=== PATIENT | female | born 2000 | race Caucasian/White ===

== ENCOUNTER 2024-07-25 13:04 | Emergency (ER) | payer SELFPAY ==
[2024-07-25 13:09] VITALS: BP 138/88; PULSE 99; RESP 20; TEMP 36.5; O2SAT 100; BMI 17.4
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
--- NOTE | 2024-07-25 13:36 | CT_ITS ---
FINAL REPORT TECHNIQUE: Thin section axial images were obtained through the thoracic spine without contrast. Sagittal and coronal images were obtained from the axial data. This study was performed with techniques to keep radiation doses as low as reasonably achievable, (ALARA). Individualized dose reduction techniques using automated exposure control or adjustment of mA and/or kV according to the patient's size were employed. CLINICAL HISTORY: trauma, critical injury suspected FINDINGS: There is no acute fracture of the thoracic spine. There is no malalignment. The disc spaces are well-preserved. No acute paraspinal abnormality is identified. IMPRESSION: No acute osseous abnormality of the thoracic spine. Reviewed, Interpreted and Dictated by Alena Barnard MD Transcribed by Mariely Oliver Authenticated and [facility]
--- NOTE | 2024-07-25 13:36 | CT_ITS ---
FINAL REPORT TECHNIQUE: Thin section axial images were obtained through the cervical spine without contrast. Multiplanar reconstruction images were obtained from the axial data. Exam was performed using dose reduction techniques. CLINICAL HISTORY: trauma, critical injury suspected FINDINGS: There is no acute fracture or acute malalignment of the cervical spine. There is no evidence of unilateral or bilateral facet lock. Vertebral body height is preserved. No acute paraspinal abnormality is identified. IMPRESSION: No acute osseous abnormality of the cervical spine. Reviewed, Interpreted and Dictated by Alena Barnard MD Transcribed by Mariely Oliver Authenticated and [facility]
--- NOTE | 2024-07-25 13:36 | CT_ITS ---
FINAL REPORT TECHNIQUE: Thin section axial images were obtained through the lumbar spine without contrast. Sagittal and coronal reconstruction images were obtained from the axial data. Exam was performed using dose reduction techniques. CLINICAL HISTORY: trauma, critical injury suspected FINDINGS: There is no acute fracture or acute malalignment of the lumbar spine. Vertebral body height is preserved. The disc spaces are well-preserved. There is no significant central stenosis. Paraspinal soft tissues are within normal limits. There is no paraspinal mass or fluid collection. IMPRESSION: No acute abnormality of the lumbar spine. Reviewed, Interpreted and Dictated by Alena Barnard MD Transcribed by Mariely Oliver Authenticated and [facility]
--- NOTE | 2024-07-25 13:36 | CT_ITS ---
FINAL REPORT TECHNIQUE: Thin section axial images were obtained from skull base to vertex without contrast. Coronal reconstruction images were obtained from the axial data. Exam was performed using dose reduction technique. CLINICAL HISTORY: trauma, critical injury suspected FINDINGS: There is no mass effect or midline shift. There is no hydrocephalus. There is no intracranial hemorrhage. The posterior fossa is without acute abnormality. The basilar cisterns are preserved. The soft tissues are without acute abnormality. No acute osseous abnormality is identified. IMPRESSION: No acute intracranial abnormality. Reviewed, Interpreted and Dictated by Alena Barnard MD Transcribed by Mariely Oliver Authenticated and [facility]
--- NOTE | 2024-07-25 13:37 | CT_ITS ---
FINAL REPORT TECHNIQUE: Axial images through the pelvis were performed by computed tomography. Sagittal and coronal reformatted images were obtained and reviewed. This study was performed with techniques to keep radiation doses as low as reasonably achievable, (ALARA). Individualized dose reduction techniques using automated exposure control or adjustment of mA and/or kV according to the patient's size were employed. CLINICAL HISTORY: trauma, critical injury suspected FINDINGS: No acute fracture is identified of the pelvis or either hip. The hip joint spaces are well-preserved. The sacroiliac joints are intact. There is no acute soft tissue abnormality. IMPRESSION: No acute osseous abnormality. Reviewed, Interpreted and Dictated by Alena Barnard MD Transcribed by Mariely Oliver Authenticated and [facility]
[2024-07-25] MEDS: KETOROLAC 30MG/ML VIAL 15 MG IV (13:45)
[2024-07-25] MEDS: METHOCARBAMOL 500MG TABLET 500 MG PO (13:45)
[2024-07-25] MEDS: ACETAMINOPHEN 500MG TAB 1000 MG PO (13:45)
[2024-07-25 13:52] VITALS: BP 113/83; PULSE 82; O2SAT 95
[2024-07-25 14:00] VITALS: BP 106/67; PULSE 73; O2SAT 99
[2024-07-25 14:12] LABS: Albumin Level 4.3 g/dl (3.5-5.0); Chloride 107 mmol/L (98-107); Potassium 4.3 mmoL/L (3.5-5.1); Sodium 139 mmol/L (136-145)
[2024-07-25 14:14] LABS: Alanine Aminotransferase 20 U/L (12-78); Aspartate Amino Transferase 42 U/L (14-36); Blood Urea Nitrogen 10 mg/dl (7-17); Estimated Glomerular Filt Rate 125 ml/min (>60); GFR (African American) 151 ML/MIN (>60)
[2024-07-25 14:15] LABS: Albumin/Globulin Ratio 1.7 (1.1-1.8); Alkaline Phosphatase 36 U/L (38-126); Anion Gap 11.3 mEq/L (5-15); Bilirubin,Total 0.5 mg/dl (0.2-1.3); Calcium 9.2 mg/dl (8.4-10.2); Carbon Dioxide 25 mmol/L (22.0-30.0); Creatine Kinase 1006 U/L (30-135); Globulin 2.5 g/dL (1.3-3.2); Glucose 88 mg/dl (74-100); Total Protein,Serum 6.8 g/dl (6.3-8.2)
[2024-07-25 14:16] LABS: Lactic Acid 0.8 mmol/L (0.7-2.1)
[2024-07-25 14:18] LABS: Basophils # 0.1 K/mm3 (0-0.2); Basophils % 1.2 % (0.1-2.0); Eosinophils # 0.1 K/mm3 (0.0-0.4); Eosinophils % 1.7 % (0.1-12.0); Hematocrit 36.9 % (37.0-47.0); Hemoglobin 12.3 g/dL (12.2-16.2); Lymphocytes # 1.5 K/mm3 (0.7-4.5); Lymphocytes % 36.2 % (10-50); Mean Corpuscular HGB Conc 33.3 g/dL (31.8-35.4); Mean Corpuscular Hemoglobin 31.5 pg (27.0-31.2); Mean Corpuscular Volume 94.6 fl (81-99); Mean Platelet Volume 7.2 fl (7.4-10.4); Monocytes # 0.2 K/mm3 (0.1-1.0); Monocytes % 4.8 % (1.7-9.3); Neutrophils # 2.4 K/mm3 (1.8-7.8); Neutrophils % 56.1 % (37.0-80.0); Platelet Count 226 K/mm3 (142-424); Red Cell Distribution Width 13.8 % (11.5-17.5); White Blood Count 4.2 K/mm3 (4.8-10.8)
[2024-07-25 14:24] LABS: NT Pro Brain Natriuretic Pep. 50.2 pg/mL (0-125)
[2024-07-25 14:39] LABS: HCG Qualitative, Serum Negative (Negative)
--- NOTE | 2024-07-25 15:05 | PC.NURSE ---
Radiology notified that serum HCG is negative
[2024-07-25] MEDS: 0.9 % SODIUM CHLORIDE 1000ML 1,000 ML 999 ML IV (15:06)
[2024-07-25 16:31] LABS: Microscopic, Urine URINE MICROSCOPIC (MICROSCOPIC)
[2024-07-25 16:33] LABS: Appearance,Urine CLEAR (Clear); Bilirubin,Urine Negative (Negative); Blood, Urine Negative (Negative); Color,Urine YELLOW (Yellow); Glucose,Urine (UA) Negative (Negative); Ketones,Urine Negative (Negative); Leukocyte Esterase,Urine 1+ (Negative); Nitrate,Urine Negative (Negative); Protein,Urine Negative (Negative); Specific Gravity, Urine 1.015 (1.005-1.030); Urobilinogen,Urine 0.2 EU/dl (0.2)
[2024-07-25 16:52] LABS: Bacteria,Urine 2+ /lpf; Squamous Epithelial Cell,Urine 20-50 #/hpf (0-5)
[2024-07-25 17:26] VITALS: BP 115/75; PULSE 73; RESP 16; TEMP 36.7; O2SAT 98
== END 2024-07-25 17:36 | disposition home or self-care (01) ==
PROVIDERS: Physician Assistant; Emergency Provider Emergency Medicine
DX: M62.82 Rhabdomyolysis (principal); T07.XXXA Unspecified multiple injuries, initial encounter; R07.89 Other chest pain; M25.561 Pain in right knee; M25.562 Pain in left knee; M25.531 Pain in right wrist; M25.532 Pain in left wrist; M79.641 Pain in right hand; M79.642 Pain in left hand; M79.601 Pain in right arm; M79.602 Pain in left arm; M25.522 Pain in left elbow; M25.512 Pain in left shoulder; Y04.0XXA Assault by unarmed brawl or fight, initial encounter; Y93.9 Activity, unspecified; Y92.9 Unspecified place or not applicable
CPT/HCPCS: 70450; 71250; 72125; 72128; 72131; 72192; 73080; 73090; 73110; 73130; 73562; 73590; 80053; 81001; 82550; 83605; 83880; 84703; 85025; 87086; 96361; 96374; 99285; J1885; J7030